=== PATIENT | female | born 1950 | race Caucasian/White ===

== ENCOUNTER 2018-02-28 13:43 | Emergency (ER) | payer OTHER ==
--- NOTE | 2018-02-28 14:23 | CPEKG ---
Heart Rate: 58 RR Interval: 1034 P-R Interval: 140 QRSD Interval: 86 QT Interval: 424 QTC Interval: 417 P [place]: 58 QRS [place]: 10 T Wave [place]: 53 EKG Severity - NORMAL ECG - EKG Impression: SINUS RHYTHM Electronically Signed By: Regis Wells 28-Feb-2018 15:32:20
--- NOTE | 2018-02-28 15:00 | EDPHY ---
H & P Time Seen by Provider: 02/28/18 14:47 HPI/ROS: CHIEF COMPLAINT: Dizzy lightheaded short of breath HISTORY OF PRESENT ILLNESS: The patient had symptoms starting about 3 weeks ago after she was in [place] and had exposure to mononucleosis by a relative. She went on a 3 day cleansed and then got really dehydrated in her yard 2 weeks ago and since then has felt intermittent shortness of breath fatigue and dizziness which is not necessarily exertional or positional, intermittent, better 2 days ago and then worse today. She feels that she "could not get a deep breath"associated with a little bit a lightheadedness without syncope and some shortness of breath without chest pain or severe cough. REVIEW OF SYSTEMS: Eye: Little bit of intermittent blurry vision over the last 2 weeks ENT: no sore throat Cardiac: No chest pain, no fainting Pulmonary: She has a chronic when her cough which is actually been improving over the last month, no hemoptysis Abdomen: no vomiting, diarrhea, abdominal pain Musculoskeletal: no back pain, chronic left leg swelling after varicose vein surgery 2 years ago, unchanged Skin: Venous stasis changes left leg, chronic, no urticaria. Neuro: no headache Constitutional: no fever : no urinary symptoms A comprehensive 10 point review of systems is otherwise negative aside from elements mentioned in the history of present illness. PAST MEDICAL HISTORY: Chronic left leg pain after varicose vein surgery 2 years ago. Negative for diabetes hypercholesterolemia or hypertension. Family history negative for venous thromboembolism or coronary disease. Social history: Negative for recent travel or immobilization, nonsmoker General Appearance: Alert and conversant, cooperative. Eyes: No scleral icterus. ENT, Mouth: Normal mucous membranes. No angioedema. Respiratory: Normal respiratory effort, breath sounds equal, lungs are clear to auscultation. No wheezing. Cardiovascular: Regular rate and rhythm. Gastrointestinal: Abdomen is soft and non tender. Neurological: Alert, face symmetric, normal motor and sensory in extremities. Skin: Warm and dry, no rashes. Musculoskeletal: Left leg has some venous stasis changes after her varicose vein surgery which the patient says are stable, very minimal calf tenderness which the patient says is chronic for the last 2 years. Psychiatric: Not agitated. Emergency Department course/MDM: EKG is normal. Plan for chest x-ray, D-dimer and troponin, CBC and electrolytes. She also relates that 2 days ago in the middle the night she"felt a pop"in her chest which made her symptoms feel better for about 12 hr. 1529: Chest x-ray negative, D-dimer less than 0.5, troponin negative. 1555: discussed results, I think that pretest likelihood for pulmonary embolism is low. I think acute coronary syndrome or unstable angina or malignant dysrhythmia would be unlikely, reasonable to follow up as an outpatient with her primary care doctor. She speaks in full sentences and does not have extra work of breathing. Smoking Status: Never smoked Constitutional: Initial Vital Signs Temperature (C) 36.5 C 02/28/18 13:50 Heart Rate 63 02/28/18 13:50 Respiratory Rate 18 02/28/18 13:50 Blood Pressure 132/84 H 02/28/18 13:50 O2 Sat (%) 94 02/28/18 13:50 O2 Delivery Mode Room Air Allergies/Adverse Reactions: codeine Allergy (Verified 02/28/18 13:50) Medical Decision Making - Diagnostics EKG Interpretation: 12-lead EKG interpreted by me; official reading is in trace master. My interpretation is sinus rhythm rate 58 no ischemic changes Imaging Results: Imaging Impressions Chest X-Ray 02/28/18 14:57 Impression: No evidence of acute cardiopulmonary abnormality. Imaging: I viewed and interpreted images myself Differential Diagnosis: Differential diagnosis considered for shortness of breath including but not limited to pulmonary infectious process, COPD, asthma, pulmonary embolus and congestive heart failure. - Data Points Laboratory Results: Laboratory Results 02/28/18 14:27 02/28/18 14:27 02/28/18 02/28/18 02/28/18 14:27 14:27 14:27 WBC 4.79 10^3/uL 10^3/uL (3.80-9.50) RBC 5.52 10^6/uL H 10^6/uL (4.18-5.33) Hgb 15.4 g/dL g/dL (12.6-16.3) Hct 44.9 % % (38.0-47.0) MCV 81.3 fL L fL (81.5-99.8) MCH 27.9 pg pg (27.9-34.1) MCHC 34.3 g/dL g/dL (32.4-36.7) RDW 14.2 % % (11.5-15.2) Plt Count 240 10^3/uL 10^3/uL (150-400) MPV 10.0 fL fL (8.7-11.7) Neut % (Auto) 52.0 % % (39.3-74.2) Lymph % (Auto) 35.5 % % (15.0-45.0) [place] % (Auto) 10.0 % % (4.5-13.0) Eos % (Auto) 1.7 % % (0.6-7.6) Baso % (Auto) 0.6 % % (0.3-1.7) Nucleat RBC Rel Count 0.0 % % (0.0-0.2) Absolute Neuts (auto) 2.49 10^3/uL 10^3/uL (1.70-6.50) Absolute Lymphs (auto) 1.70 10^3/uL 10^3/uL (1.00-3.00) Absolute Monos (auto) 0.48 10^3/uL 10^3/uL (0.30-0.80) Absolute Eos (auto) 0.08 10^3/uL 10^3/uL (0.03-0.40) Absolute Basos (auto) 0.03 10^3/uL 10^3/uL (0.02-0.10) Absolute Nucleated RBC 0.00 10^3/uL 10^3/uL (0-0.01) Immature Gran % 0.2 % % (0.0-1.1) Immature Gran # 0.01 10^3/uL 10^3/uL (0.00-0.10) D-Dimer 0.44 ug/mLFEU ug/mLFEU (0.00-0.50) Sodium 140 mEq/L mEq/L (135-145) Potassium 4.4 mEq/L mEq/L (3.5-5.2) Chloride 104 mEq/L mEq/L (97-110) Carbon Dioxide 27 mEq/l mEq/l (22-31) Anion Gap 9 mEq/L mEq/L (8-16) BUN 14 mg/dL mg/dL (7-23) Creatinine 0.8 mg/dL mg/dL (0.6-1.0) Estimated GFR > 60 Glucose 87 mg/dL mg/dL (70-100) Calcium 9.7 mg/dL mg/dL (8.5-10.4) Troponin I < 0.012 ng/mL ng/mL (0.000-0.034) Departure - Departure Disposition: Home, Routine, Self-Care Clinical Impression: Dyspnea Qualifiers: Dyspnea type: unspecified Qualified Code(s): R06.00 - Dyspnea, unspecified Condition: Good Instructions: Dyspnea (ED) Additional Instructions: Hematocrit 44.9, sodium 140, potassiu 4.4, creatnine 0.8, glucose 87; all normal numbers Referrals: Sal Lund MD [Primary Care Provider] - As per Instructions
[2018-02-28 15:03] LABS: PLATELET COUNT 240 10^3/uL (150-400)
[2018-02-28 15:47] VITALS: RESP 17
[2018-02-28 16:08] VITALS: BP 116/73; PULSE 58; TEMP 97.9; O2SAT 96
== END 2018-02-28 16:08 | disposition home or self-care (01) ==
DX: R06.00 Dyspnea, unspecified (principal)

== ENCOUNTER → 2018-10-24 | Outpatient (CLI) | payer OTHER | LOC: BMCIMAGING 12:42 | PROVIDERS: ATTEND Emergency Medicine | DX: S92.412A Displaced fracture of proximal phalanx of left great toe, initial encounter for closed fracture (principal); S92.512A Displaced fracture of proximal phalanx of left lesser toe(s), initial encounter for closed fracture; M19.072 Primary osteoarthritis, left ankle and foot ==